=== PATIENT | male | born 1985 | race Caucasian/White ===

== ENCOUNTER 2021-03-23 09:19 | Day surgery (SDC) | payer SELFPAY ==
[2021-03-23] VITALS (9 sets, daily range): BP systolic 115–130; BP diastolic 49–89
[~2021-03-23] VITALS: Ht 182.8 cm; Wt 113.0 kg
[2021-03-23] MEDS: CLINDAMYCIN 900 MG/50 ML IVPB 50 ML IV ONE ×2 (09:19→12:30)
[2021-03-23] MEDS ORDERED: NS 100 ML (IVPB) BAG IV ONE (09:45)
[2021-03-23] MEDS ORDERED: NS IV 1000 ML 1,000 ML IV SCH (09:45)
[2021-03-23] MEDS ORDERED: fentaNYL INJ 100 MCG/2 ML AMP IVP ONE (09:45)
[2021-03-23] MEDS ORDERED: ONDANSETRON 4 MG/2 ML (SDV) Z0FRAN IVP ONE (09:45)
[2021-03-23] MEDS ORDERED: IOHEXOL 350 MG/ML 100 ML (OMNIPAQUE 350) VIAL IV ONE (09:45)
[2021-03-23] MEDS ORDERED: HOLD METFORMIN - RECEIVED CONTRAST 20 ML VIAL IV SCH (09:45)
[2021-03-23 09:47] LABS: BASOPHILS % (AUTO) 0 % (0-10); EOSINOPHILS # (AUTO) 0.2 10^3/uL (0.0-0.3); EOSINOPHILS % (AUTO) 2 % (0-10); HEMATOCRIT 48 % (40-54); HEMOGLOBIN 16.3 g/dL (13.3-17.7); LYMPHOCYTES # (AUTO) 2.2 10^3/uL (1.0-4.0); LYMPHOCYTES % (AUTO) 22 % (12-44); MEAN CORPUSCULAR HEMOGLOBIN 36 pg (25-34); MEAN CORPUSCULAR HGB CONC 34 g/dL (32-36); MEAN CORPUSCULAR VOLUME 104 fL (80-99); MEAN PLATELET VOLUME 9.6 fL (9.0-12.2); MONOCYTES # (AUTO) 0.9 10^3/uL (0.0-1.0); MONOCYTES % (AUTO) 9 % (0-12); NEUTROPHILS # (AUTO) 6.7 10^3/uL (1.8-7.8); NEUTROPHILS % (AUTO) 67 % (42-75); PLATELET COUNT 201 10^3/uL (130-400)
--- NOTE | 2021-03-23 09:48 | ED General ---
General Chief Complaint: General Problems/Pain Stated Complaint: GENITAL SWELLING/LUMP Nursing Triage Note: AMB TO ROOM WITH C/O RECTAL PAIN WITH FEELING A KNOT IN RECTAL AREA. IS PAINFUL. Source of Information: Patient Exam Limitations: No Limitations History of Present Illness Date Seen by Provider: Mar 23, 2021 Time Seen by Provider: 09:30 Initial Comments Patient is a 35-year-old male who presents to the emergency department today w ith a chief complaint of severe rectal pain onset a couple of days ago. Patient states he feels "a knot" there and it is very painful he was able to have a bowel movement yesterday, nonblack nonbloody. No fevers or chills. No nausea vomiting. No problems with urination. He has not been using anything on the area, he has no history of hemorrhoids. No recent heavy lifting or straining. He is not a diabetic, no chronic medical problems. Last food intake was yesterday, he did drink a half a can of an energy drink just prior to arrival. All other review of systems reviewed and negative except as stated. Timing/Duration: 2-3 Days Severity: Severe Associated Systoms: Denies Symptoms Allergies and Home Medications Allergies Coded Allergies: No Known Drug Allergies (Unverified , 03/23/21) Patient Home Medication List Home Medication List Reviewed: Yes Amoxicillin/Potassium Clav (Augmentin 875-125 Tablet) 1 Each Tablet, 1 EACH PO BID Prescribed by: YOBANI LOPEZ on 03/23/21 1157 Hydrocodone/Acetaminophen (Hydrocodone-Acetamin 7.5-325) 1 Each Tablet, 1 EACH PO Q4H Prescribed by: YOBANI LOPEZ on 03/23/21 1157 Review of Systems Review of Systems Constitutional: see HPI EENTM: no symptoms reported Respiratory: no symptoms reported Cardiovascular: no symptoms reported Gastrointestinal: no symptoms reported Genitourinary: other (rectal pain - severe) Musculoskeletal: no symptoms reported Skin: no symptoms reported Psychiatric/Neurological: No Symptoms Reported All Other Systems Reviewed Negative Unless Noted: Yes Past Hpgttry-Lthgfo-Pvbype Hx Patient Social History Tobacco Use?: Yes Use of E-Cig and/or Vaping Will: Current Everyday User Substance use?: No Alcohol Use?: Yes Alcohol Frequency: Rarely Physical Exam Vital Signs Vital Signs - First Documented 03/23/21 09:25 Temp 36.9 Pulse 117 Resp 18 B/P (MAP) 126/86 (99) Pulse Ox 97 O2 Delivery Room Air Capillary Refill : Less Than 3 Seconds Height, Weight, BMI Height: '" Weight: lbs. oz. kg; 33.00 BMI Method: General Appearance: No Apparent Distress, WD/WN, Anxious ((mildly)) Eyes: Bilateral Eye Normal Inspection, Bilateral Eye PERRL, Bilateral Eye EOMI HEENT: PERRL/EOMI Respiratory: Lungs Clear, Normal Breath Sounds, No Accessory Muscle Use, No Respiratory Distress Cardiovascular: Regular Rate, Rhythm Gastrointestinal: Non Tender, Soft Rectal: Tenderness (patient has what appears to hemmorhoidal swelling at the 6- 9 o'clock position exquisitely tender to palpation with induration that extend out into the left buttock about 4cm or perhaps a little more, overlying erythema which also extends up into the perineum. no crepitance - patient has great difficulty tolerating the exam due to pain; I was able to palpate just about 2cm into the rectal vault and feel quite a bit of induration - no discrete fluctuance - again the pateint was unable to tolerate MARYLOU due to severe pain; no gross blood noted.) Extremity: Normal Inspection, Normal Range of Motion, Non Tender, No Calf Tenderness Neurologic/Psychiatric: Alert, Oriented x3, No Motor/Sensory Deficits, Normal Mood/Affect Skin: Normal Color, Warm/Dry Progress/Results/Core Measures Suspected Sepsis SIRS Temperature: Pulse: 117 Respiratory Rate: 18 Laboratory Tests 03/23/21 09:41: White Blood Count 10.0 Blood Pressure 126 /86 Mean: 99 Laboratory Tests 03/23/21 09:41: Creatinine 0.80, Platelet Count 201 Results/Orders Lab Results Laboratory Tests Test 03/23/21 09:41 Range/Units White Blood Count 10.0 4.3-11.0 10^3/uL Red Blood Count 4.57 4.30-5.52 10^6/uL Hemoglobin 16.3 13.3-17.7 g/dL Hematocrit 48 40-54 % Mean Corpuscular Volume 104 H 80-99 fL Mean Corpuscular Hemoglobin 36 H 25-34 pg Mean Corpuscular Hemoglobin Concent 34 32-36 g/dL Red Cell Distribution Width 12.5 10.0-14.5 % Platelet Count 201 130-400 10^3/uL Mean Platelet Volume 9.6 9.0-12.2 fL Immature Granulocyte % (Auto) 0 % Neutrophils (%) (Auto) 67 42-75 % Lymphocytes (%) (Auto) 22 12-44 % Monocytes (%) (Auto) 9 0-12 % Eosinophils (%) (Auto) 2 0-10 % Basophils (%) (Auto) 0 0-10 % Neutrophils # (Auto) 6.7 1.8-7.8 10^3/uL Lymphocytes # (Auto) 2.2 1.0-4.0 10^3/uL Monocytes # (Auto) 0.9 0.0-1.0 10^3/uL Eosinophils # (Auto) 0.2 0.0-0.3 10^3/uL Basophils # (Auto) 0.0 0.0-0.1 10^3/uL Immature Granulocyte # (Auto) 0.0 0.0-0.1 10^3/uL Sodium Level 137 135-145 MMOL/L Potassium Level 4.1 3.6-5.0 MMOL/L Chloride Level 105 98-107 MMOL/L Carbon Dioxide Level 20 L 21-32 MMOL/L Anion Gap 12 5-14 MMOL/L Blood Urea Nitrogen 12 7-18 MG/DL Creatinine 0.80 0.60-1.30 MG/DL Estimat Glomerular Filtration Rate 117 BUN/Creatinine Ratio 15 Glucose Level 120 H 70-105 MG/DL Calcium Level 9.0 8.5-10.1 MG/DL My Orders Orders - ABDIAS SELF MD Ed Iv/Invasive Line Start (03/23/21 09:39) Cbc With Automated Diff (03/23/21 09:39) Basic Metabolic Panel (03/23/21 09:39) Ct Pelvis W (03/23/21 09:39) Ns Iv 1000 Ml (Sodium Chloride 0.9%) (03/23/21 09:45) Fentanyl Inj (Sublimaze Injection) (03/23/21 09:45) Ondansetron Injection (Zofran Injectio (03/23/21 09:45) Iohexol Injection (Omnipaque 350 Mg/Ml 1 (03/23/21 09:45) Received Contrast (Hold Metformin- Contr (03/23/21 09:45) Ns (Ivpb) (Sodium Chloride 0.9% Ivpb Bag (03/23/21 09:45) Morphine Injection (Morphine Injection (03/23/21 10:22) Morphine Injection (Morphine Injection (03/23/21 11:29) Clindamycin 900 Mg/50 Ml Ivpb (Cleocin P (03/23/21 11:45) Hydromorphone Injection (Dilaudid Inject (03/23/21 12:45) Medications Given in ED Vital Signs/I&O 03/23/21 09:25 Temp 36.9 Pulse 117 Resp 18 B/P (MAP) 126/86 (99) Pulse Ox 97 O2 Delivery Room Air Capillary Refill : Less Than 3 Seconds Blood Pressure Mean: 99 Progress Note #1: Time: 10:57 Progress Note Discussed with Dr Lopez; will be down to see. Progress Note #2: Time: 11:30 Progress Note More pain medication ordered. Dr Lopez in the room to see patient. 1137 Will take to te OR - he is going to check the schedule and see where to fit him in. Will give 900mg Clindamycin, and keep up on pain medications. Diagnostic Imaging Diagonstic Imaging: CT Comments [facility] [place] NAME: VANNA COSTA [facility] REC#: [id number] PT STATUS: REG ER : 1985 PHYSICIAN: ABDIAS SELF MD ADMIT DATE: 03/23/21/ER Draft Date of Exam:03/23/21 CT PELVIS W PROCEDURE: CT pelvis with contrast. TECHNIQUE: Oral and intravenous contrast were administered with pelvic CT performed. Auto Exposure Controls were utilized during the CT exam to meet ALARA standards for radiation dose reduction. INDICATION: Rectal pain and abscess for two to three days. COMPARISON: No prior studies are available for comparison. FINDINGS: There is a small fluid collection noted in the left perianal location measuring 2.4 x 1.6 cm, suggestive of a perianal abscess. No other fluid collections are seen. Prostate does appear to be mildly enlarged. The bladder is unremarkable. No free fluid in the pelvis is seen. Appendix is visualized and unremarkable. Bowel loops are normal in caliber. There is an enlarged left groin lymph node medial to the left femoral vein measuring 16 mm, likely reactive. Bony structures are nonacute. IMPRESSION: Findings consistent with a small left perianal abscess. Dictated on workstation # [id number] Dict: 03/23/21 1037 Trans: 03/23/21 1043 [id number] [id number] Interpreted by: SANDY SERRANO MD Electronically signed by: Departure Communication (Admissions) Time/Spoke to Admitting Phy: 11:30 discussed with John Impression Primary Impression: Autumn-rectal abscess Disposition: ADMITTED INPATIENT Condition: Stable Admissions Decision to Admit Reason: Admit from ER (General) Decision to Admit/Date: Mar 23, 2021 Time/Decision to Admit Time: 11:42 Departure-Patient Inst. Referrals: YOBANI LOPEZ MD NO,LOCAL PHYSICIAN (PCP) Primary Care Physician Scripts Hydrocodone/Acetaminophen (Hydrocodone-Acetamin 7.5-325) 1 Each Tablet 1 EACH PO Q4H, #35 TAB Prov: YOBANI LOPEZ MD 03/23/21 Amoxicillin/Potassium Clav (Augmentin 875-125 Tablet) 1 Each Tablet 1 EACH PO BID, #20 TAB Prov: YOBANI LOPEZ MD 03/23/21 Copy Copies To 1: YOBANI LOPEZ MD, KATHRYN M MD Mar 23, 2021 09:48
[2021-03-23 10:00] LABS: POTASSIUM 4.1 MMOL/L (3.6-5.0)
[2021-03-23 10:06] LABS: CREATININE SERUM 0.8 MG/DL (0.60-1.30)
[2021-03-23] MEDS ORDERED: morphine INJ 10 MG/ML 1ML (SYR OR VIAL) IVP STA ×2 (10:22→11:29)
--- NOTE | 2021-03-23 10:43 | Diagnostic Imaging Report ---
PROCEDURE: CT pelvis with contrast. TECHNIQUE: Oral and intravenous contrast were administered with pelvic CT performed. Auto Exposure Controls were utilized during the CT exam to meet ALARA standards for radiation dose reduction. INDICATION: Rectal pain and abscess for two to three days. COMPARISON: No prior studies are available for comparison. FINDINGS: There is a small fluid collection noted in the left perianal location measuring 2.4 x 1.6 cm, suggestive of a perianal abscess. No other fluid collections are seen. Prostate does appear to be mildly enlarged. The bladder is unremarkable. No free fluid in the pelvis is seen. Appendix is visualized and unremarkable. Bowel loops are normal in caliber. There is an enlarged left groin lymph node medial to the left femoral vein measuring 16 mm, likely reactive. Bony structures are nonacute. IMPRESSION: Findings consistent with a small left perianal abscess. Dictated by: Dictated on workstation # [id number]
--- NOTE | 2021-03-23 11:56 | Progress Note-Pre Operative ---
Pre-Operative Progress Note H&P Reviewed The H&P was reviewed, patient examined and no changes noted. Date Seen by Provider: Mar 23, 2021 Time Seen by Provider: 11:30 Date H&P Reviewed: Mar 23, 2021 Time H&P Reviewed: 11:30 Pre-Operative Diagnosis: perirectal abscess YOBANI CONTI MD Mar 23, 2021 11:56
[2021-03-23] MEDS ORDERED: AMOX-358 PO (11:57)
[2021-03-23] MEDS ORDERED: HYDR-3817 PO (11:57)
--- NOTE | 2021-03-23 11:58 | Discharge Inst-Surgical ---
D/C Lap Instructions-GALLITO New, Converted, or Re-Newed RX: RX on Chart Follow Up Appt in 2 weeks Activity as tolerated No driving for 24 hours No driving while on pain medications sitz bathe QID and after every BM add OTC stool softener daily Regular Diet Symptoms to Report: Fever over 101 degree F, Nausea/Vomiting Infection Signs and Symptoms to report: Increased redness, Foul odor of wound, Increased drainage Bathing instructions: May shower Operative Area Clean/Dry; Keep incision clean/dry If any problems/questions: Contact your physician or go to Emergency Room YOBANI CONTI MD Mar 23, 2021 11:58
[2021-03-23] MEDS ORDERED: ACETAMINOPHEN 325 MG TABLET PO PRN (12:00)
[2021-03-23] MEDS ORDERED: oxyCODONE/APAP 5/325MG (PERCOCET 5) TABLET PO PRN (12:00)
[2021-03-23] MEDS ORDERED: morphine INJ 10 MG/ML 1ML (SYR OR VIAL) IVP PRN ×2 (12:00)
[2021-03-23] MEDS ORDERED: ONDANSETRON 4 MG/2 ML (SDV) Z0FRAN IVP PRN ×2 (12:00→14:45)
[2021-03-23] MEDS ORDERED: HYDROmorphone 2 MG/ML VIAL (DILAUDID) IV ONE ×2 (12:45→14:45)
--- NOTE | 2021-03-23 13:38 | HISTORY AND PHYSICAL ---
DATE OF SERVICE: HISTORY OF PRESENT ILLNESS: The patient is a 35-year-old male who presented to the Emergency Department with a 3-day history of perianal, perirectal pain, which was exacerbated by having a bowel movement. He states that his last bowel movement was yesterday. He does not report any red blood per rectum as well as no purulent drainage. He states that this is his first event. A CT scan was performed, which did show a perirectal abscess. Again, he does not report any previous episodes as well as no family history of inflammatory bowel disease. The pain is significant and does interfere with his activities of daily living. PAST MEDICAL HISTORY: None. PAST SURGICAL HISTORY: Left carpal tunnel release, debridement of right groin abscess. ALLERGIES: No known drug allergies. MEDICATIONS: None. SOCIAL HISTORY: Positive smoke 1-pack-year, social alcohol. FAMILY HISTORY: Noncontributory. VITAL SIGNS: Stable, afebrile. REVIEW OF SYSTEMS: Well-nourished male, in no acute distress. He is not experiencing any shortness of breath or difficulty breathing. No chest pain, palpitations, diaphoresis. No nausea, vomiting, no diarrhea, constipation with perianal and perirectal pain for the past 3 days. No drainage. No fever, chills, no recent inadvertent weight loss. All other review of systems negative. PHYSICAL EXAMINATION: CHEST: Clear. Good breath sounds bilaterally. HEART: Regular, no murmurs. EXTREMITIES: No lower extremity edema, negative Homans sign. HEENT: No scleral icterus. NECK: No cervical lymphadenopathy. ABDOMEN: Soft, nontender, nondistended. RECTAL: There was no fistula or sinus tracts with some mild redness in the perianal region. No fluctuance palpable. ASSESSMENT AND PLAN: A 35-year-old male with perirectal abscess confirmed on CT scan, which is symptomatic and interfering with his activities of daily living and we will proceed with anal exam under anesthesia as well as incision and drainage of the perirectal abscess. Job ID: [id number] DocumentID: [id number] Dictated Date: 03/23/2021 13:01:57 Lead Generator Date: 03/23/2021 13:37:48 Dictated By: YOBANI CONTI MD
[2021-03-23] MEDS ORDERED: SEVOFLURANE (ULTANE) 15 ML INHAL SOLN ONE ×2 (13:43→14:27)
[2021-03-23] MEDS ORDERED: MIDAZOLAM 2 MG/2 ML (VERSED) VIAL ONE (13:43)
[2021-03-23] MEDS ORDERED: ONDANSETRON 4 MG/2 ML (SDV) Z0FRAN ONE (13:43)
[2021-03-23] MEDS ORDERED: proPOfol 200 MG/20 ML (DIPRIVAN) VIAL IV ONE (13:43)
[2021-03-23] MEDS ORDERED: fentaNYL INJ 100 MCG/2 ML AMP ONE (13:43)
[2021-03-23] MEDS ORDERED: LIDOCAINE PF 2% 5 ML (XYLOCAINE) VIAL ONE (13:43)
[2021-03-23] MEDS ORDERED: CLINDAMYCIN 900 MG/50 ML IVPB 50 ML IV ONE (14:06)
[2021-03-23] MEDS ORDERED: BUPIVACAINE 0.5% 30 ML (SENSORCAINE) VIAL ONE (14:07)
[2021-03-23] MEDS ORDERED: LIDOCAINE/EPI 1%-1:200,000 (XYLOCAINE) 30 ML VIAL ONE (14:07)
[2021-03-23] MEDS ORDERED: LACTATED RINGERS 1,000 ML IV PRN (14:15)
[2021-03-23] MEDS ORDERED: GLYCOPYRROLATE 0.2 MG/ML (ROBINUL) 2 ML VIAL ONE (14:27)
--- NOTE | 2021-03-23 14:39 | Progress Note-Post Operative ---
Post-Operative Progess Note Surgeon (s)/Correctional Facility Nurse (s) Surgeon YOBANI CONTI MD Correctional Facility Nurse: none Pre-Operative Diagnosis perirectal abscess Post-Operative Diagnosis left perirectal abscess(extrasphincteric) Procedure & Operative Findings Date of Procedure 03/23/21 Procedure Performed/Findings incision and drainage left perirectal abscess. Anesthesia Type general LMA Estimated Blood Loss Estimated blood loss (mL): minimal Specimens/Packing Specimens Removed abscess drainage YOBANI CONTI MD Mar 23, 2021 14:39
--- NOTE | 2021-03-23 15:03 | Anesthesia-General Post-Op ---
General Patient Condition Mental Status/LOC: Same as Preop Cardiovascular: Satisfactory Nausea/Vomiting: Absent Respiratory: Satisfactory Pain: Controlled Complications: Absent Post Op Complications Complications None Follow Up Care/Instructions Patient Instructions None needed. Anesthesia/Patient Condition Patient Condition Patient is doing well, no complaints, stable vital signs, no apparent adverse anesthesia problems. No complications reported per nursing. D/C home per [facility] [place] Criteria: Yes ALFONSO SAGASTUME CRNA Mar 23, 2021 15:03
[2021-03-23] MEDS ORDERED: oxyCODONE/APAP 5/325MG (PERCOCET 5) TABLET ONE (15:44)
--- NOTE | 2021-03-23 18:31 | OPERATIVE REPORT ---
DATE OF SERVICE: 03/23/2021 PREOPERATIVE DIAGNOSIS: Perirectal abscess. POSTOPERATIVE DIAGNOSIS: Left lateral perirectal abscess, which was extrasphincteric. PROCEDURE: Incision and drainage of perirectal abscess. Pudendal nerve block and exam under anesthesia. ANESTHESIA: General laryngeal mask airway and pudendal nerve block. ESTIMATED BLOOD LOSS: Minimal. FINDINGS: Left extrasphincteric perirectal abscess. DISPOSITION: The patient tolerated the procedure well. INDICATIONS: The patient is a 35-year-old male who presented to the Emergency Department with 3-day history of perirectal pain, which was exacerbated by having a bowel movement. He reports that his last bowel movement was yesterday. He does not report any red blood per rectum as well as no purulent drainage. He states that he has not ever had this before in the past. He states that he did have some form of an abscess secondary to an insect bite in the left inguinal region, which required an incision and drainage. A CT scan was performed, which did show a left perirectal abscess approximately 2.5 x 1.7 cm in size. Upon examination, this area was painful. DESCRIPTION OF PROCEDURE: The patient was brought to the operating room, laid supine on the table. After adequate IV pain and sedative medications and general laryngeal mask airway intubation, the patient was placed in lithotomy position and the perineum prepped and draped in standard surgical fashion. We first proceeded with a pudendal nerve block using 1% lidocaine with epinephrine, approximately 2 cm below the ischial tuberosity and witnessed the anal sphincters relaxing. A self-retaining speculum was placed and anal exam under anesthesia was performed. There were no fistulous tracts. There were no mucosal inflammatory changes. There was a palpable lesion along the left perirectal wall and appeared to be extrasphincteric. We then proceeded to anesthetize the left lateral perianal region using 1% lidocaine with epinephrine and a skin incision made using a 15 blade. Subcutaneous tissue was dissected until identifying the abscess cavity, which was then opened with purulent drainage and this was sent for culture and sensitivity. Loculations were then broken up using blunt dissection. The abscess cavity was then copiously irrigated and suctioned out. A quarter-inch Luana drain and sutured to the skin using 3-0 nylon interrupted sutures. The abscess cavity was packed with 1-inch iodoform gauze followed by 4 x 4 gauze followed by ABD pad and mesh shorts. The patient tolerated the procedure well. We will start IV normal pain medication as well as a clear liquid diet. He will be instructed to remove the packing in 24 hours and to proceed with Sitz baths 4 times a day as well as after every bowel movement. We will also have him follow up in my office in one week to remove the Luana drain. Job ID: [id number] DocumentID: [id number] Dictated Date: 03/23/2021 14:46:53 Fish Icer Date: 03/23/2021 18:30:19 Dictated By: YOBANI CONTI MD
== END 2021-03-23 17:00 | disposition home or self-care (01) ==
LOC: ER 09:23 → SDC 13:39
PROVIDERS: ATTEND Surgery
DX: K91.1 Postgastric surgery syndromes (principal); F17.210 Nicotine dependence, cigarettes, uncomplicated; Z79.891 Long term (current) use of opiate analgesic; Z79.899 Other long term (current) drug therapy
CPT/HCPCS: 36415; 72193; 80048; 85025; 87070; 87075; 87076; 87077; 87101; 87185; 87186; 87205

== ENCOUNTER → 2021-08-13 | Day surgery (SDC) | payer BC ==
[2021-08-13] VITALS (7 sets, daily range): BP systolic 107–124; BP diastolic 63–86
[~2021-08-13] VITALS: Ht 182.8 cm; Wt 113.0 kg
[~2021-08-13] MED LIST: ACHD5005 PO; AMOX-358 PO; HYDR-3817 PO; HYDROcodone/APAP 5 MG/325 MG (LORTAB) TAB ONE; HYDROcodone/APAP 5 MG/325 MG (LORTAB) TAB PO PRN; HYDROmorphone 2 MG/ML VIAL (DILAUDID) IV ONE; HYDROmorphone 2 MG/ML VIAL (DILAUDID) ONE; KETOROLAC 30 MG/ML VIAL ONE; LACTATED RINGERS 1,000 ML IV PRN; LIDOCAINE/EPI 2% 1:100,00 (XYLOCAINE) 20 ML VIAL ONE; MEPERIDINE (DEMEROL) INJ 50 MG/ML ONE; MIDAZOLAM 2 MG/2 ML (VERSED) VIAL ONE; ONDANSETRON 4 MG/2 ML (SDV) Z0FRAN IVP ONE; ONDANSETRON 4 MG/2 ML (SDV) Z0FRAN ONE; PROMETHAZINE INJ 25 MG/ML (PHENERGAN) AMP ONE; SEVOFLURANE (ULTANE) 15 ML INHAL SOLN ONE; SULF1TAB38 PO; cefTRIAXone 1 GM PRE-MIX 50 ML IV SCH; fentaNYL INJ 100 MCG/2 ML AMP ONE; metroNIDAZOLE 500MG/100ML IVPB 100 ML IV ONE; morphine INJ 10 MG/ML 1ML (SYR OR VIAL) IVP STA; proPOfol 200 MG/20 ML (DIPRIVAN) VIAL IV ONE
--- NOTE | 2021-08-13 15:10 | ED Integumentary General ---
General Chief Complaint: Skin/Wound Problems Stated Complaint: RECTAL ABCESS Source: patient, family () Exam Limitations: no limitations History of Present Illness Date Seen by Provider: Aug 13, 2021 Time Seen by Provider: 15:00 Initial Comments Patient is a 35-year-old male who presents to the emergency room today with a chief complaint of rectal abscess. Patient was seen a couple of months ago here in the emergency room, had incision and drainage by one of the surgeons. He states he was sent home on antibiotics. He felt at that time the abscess had not been drained "enough". He states since that time it seems to have "come and gone". Over the last 4 days he has had increasing rectal pain, inability to have a bowel movement. No fevers or chills. He was vomiting at work today secondary to the pain. He is not a diabetic. All other review of systems reviewed and negative except as stated. Timing/Duration: other (3-4 days) Location: genitalia (rectal) Associated Symptoms: other (n/v) Allergies and Home Medications Allergies Coded Allergies: No Known Drug Allergies (Unverified , 08/13/21) Patient Home Medication List Home Medication List Reviewed: Yes Hydrocodone/Acetaminophen (Hydrocodone-Acetamin 5-325 mg) 5 Mg-325 Mg Tablet, 1 TAB PO Q6H PRN for PAIN-MODERATE (5-7) Prescribed by: BEVERLEY RICHARDSON on 08/13/21 183 Sulfamethoxazole/Trimethoprim (Bactrim Ds Tablet) 1 Each Tablet, 1 EACH PO BID Prescribed by: BEVERLEY RICHARDSON on 08/13/21 183 Discontinued Medications Amoxicillin/Potassium Clav (Augmentin 875-125 Tablet) 1 Each Tablet, 1 EACH PO BID Prescribed by: YOBANI CONTI on 03/23/21 1157 Hydrocodone/Acetaminophen (Hydrocodone-Acetamin 7.5-325) 1 Each Tablet, 1 EACH PO Q4H Prescribed by: YOBANI CONTI on 03/23/21 1157 Review of Systems Review of Systems Constitutional: see HPI EENTM: no symptoms reported Respiratory: no symptoms reported Cardiovascular: no symptoms reported Gastrointestinal: nausea, vomiting Genitourinary: pain (rectal abscess) Musculoskeletal: no symptoms reported Skin: no symptoms reported Psychiatric/Neurological: No Symptoms Reported Past Omhjixp-Dgseyn-Ikusxl Hx Past Medical History Currently Using CPAP: No Currently Using BIPAP: No Physical Exam Vital Signs Vital Signs - First Documented 08/13/21 15:00 Temp 37.8 Pulse 100 Resp 18 B/P (MAP) 126/86 (99) Pulse Ox 96 O2 Delivery Room Air Capillary Refill : General Appearance: WD/WN, mild distress HEENT: PERRL/EOMI Cardiovascular: regular rate, rhythm Respiratory: lungs clear, normal breath sounds, no respiratory distress, no accessory muscle use Extremities: normal range of motion, normal inspection Neurologic/Psychiatric: alert, normal mood/affect, oriented x 3 Skin: normal color, warm/dry, other (Large abscess left medial buttock adjacent to the rectum. He has erythema extending up to the perineum. No induration at the perineum. There is an area of about 2 cm of central fluctuance. There seems to be scar at this area. Exquisitely tender. Red and hot) Skin Problem Character: abscess Progress/Results/Core Measures Results/Orders Lab Results Laboratory Tests Test 08/13/21 15:15 Range/Units White Blood Count 11.7 H 4.3-11.0 10^3/uL Red Blood Count 4.46 4.30-5.52 10^6/uL Hemoglobin 15.5 13.3-17.7 g/dL Hematocrit 45 40-54 % Mean Corpuscular Volume 102 H 80-99 fL Mean Corpuscular Hemoglobin 35 H 25-34 pg Mean Corpuscular Hemoglobin Concent 34 32-36 g/dL Red Cell Distribution Width 12.4 10.0-14.5 % Platelet Count 221 130-400 10^3/uL Mean Platelet Volume 10.0 9.0-12.2 fL Immature Granulocyte % (Auto) 0 % Neutrophils (%) (Auto) 77 H 42-75 % Lymphocytes (%) (Auto) 16 12-44 % Monocytes (%) (Auto) 6 0-12 % Eosinophils (%) (Auto) 1 0-10 % Basophils (%) (Auto) 0 0-10 % Neutrophils # (Auto) 9.0 H 1.8-7.8 10^3/uL Lymphocytes # (Auto) 1.9 1.0-4.0 10^3/uL Monocytes # (Auto) 0.7 0.0-1.0 10^3/uL Eosinophils # (Auto) 0.1 0.0-0.3 10^3/uL Basophils # (Auto) 0.0 0.0-0.1 10^3/uL Immature Granulocyte # (Auto) 0.0 0.0-0.1 10^3/uL Sodium Level 139 135-145 MMOL/L Potassium Level 4.0 3.6-5.0 MMOL/L Chloride Level 106 98-107 MMOL/L Carbon Dioxide Level 19 L 21-32 MMOL/L Anion Gap 14 5-14 MMOL/L Blood Urea Nitrogen 8 7-18 MG/DL Creatinine 0.83 0.60-1.30 MG/DL Estimat Glomerular Filtration Rate 116 BUN/Creatinine Ratio 10 Glucose Level 97 70-105 MG/DL Calcium Level 9.5 8.5-10.1 MG/DL My Orders Orders - ABDIAS SELF MD Ed Iv/Invasive Line Start (08/13/21 15:06) Cbc With Automated Diff (08/13/21 15:06) Basic Metabolic Panel (08/13/21 15:06) Ondansetron Injection (Zofran Injectio (08/13/21 15:15) Morphine Injection (Morphine Injection (08/13/21 15:06) Hydromorphone Injection (Dilaudid Inject (08/13/21 15:45) Lidocaine/Epi 2% 1:100,000 (Xylocaine/Ep (08/13/21 16:22) Medications Given in ED Vital Signs/I&O 08/13/21 15:00 Temp 37.8 Pulse 100 Resp 18 B/P (MAP) 126/86 (99) Pulse Ox 96 O2 Delivery Room Air Progress Progress Note : Time: 15:14 Progress Note Discussed with Dr Sheriff - will be in to see in a few moments Departure Impression Primary Impression: Autumn-rectal abscess Disposition: ADMITTED INPATIENT Condition: Stable Admissions Decision to Admit Reason: Admit from ER (General) Decision to Admit/Date: Aug 13, 2021 Time/Decision to Admit Time: 16:00 Departure-Patient Inst. Referrals: AURA SHERIFF DO NO,LOCAL PHYSICIAN (PCP) Primary Care Physician Scripts Hydrocodone/Acetaminophen (Hydrocodone-Acetamin 5-325 mg) 5 Mg-325 Mg Tablet 1 TAB PO Q6H PRN for PAIN-MODERATE (5-7), #30 TAB 1-2 every 6 hours as needed for pain Prov: AURA SHERIFF DO 08/13/21 Sulfamethoxazole/Trimethoprim (Bactrim Ds Tablet) 1 Each Tablet 1 EACH PO BID for 10 Days, #20 TAB Prov: AURA SHERIFF DO 08/13/21 Copy Copies To 1: AURA SHERIFF KATHRYN M MD Aug 13, 2021 15:10
[2021-08-13 15:27] LABS: BASOPHILS % (AUTO) 0 % (0-10); EOSINOPHILS # (AUTO) 0.1 10^3/uL (0.0-0.3); EOSINOPHILS % (AUTO) 1 % (0-10); HEMATOCRIT 45 % (40-54); HEMOGLOBIN 15.5 g/dL (13.3-17.7); LYMPHOCYTES # (AUTO) 1.9 10^3/uL (1.0-4.0); LYMPHOCYTES % (AUTO) 16 % (12-44); MEAN CORPUSCULAR HEMOGLOBIN 35 pg (25-34); MEAN CORPUSCULAR HGB CONC 34 g/dL (32-36); MEAN CORPUSCULAR VOLUME 102 fL (80-99); MONOCYTES # (AUTO) 0.7 10^3/uL (0.0-1.0); MONOCYTES % (AUTO) 6 % (0-12); NEUTROPHILS % (AUTO) 77 % (42-75); PLATELET COUNT 221 10^3/uL (130-400); WHITE BLOOD COUNT 11.7 10^3/uL (4.3-11.0)
[2021-08-13 15:39] LABS: CALCIUM 9.5 MG/DL (8.5-10.1)
[2021-08-13 15:44] LABS: CREATININE SERUM 0.83 MG/DL (0.60-1.30)
--- NOTE | 2021-08-13 16:12 | Consultation - Surgery ---
History of Present Illness History of Present Illness Patient Consulted On(william/time) 08/13/21 16:07 Date Seen by Provider: Aug 13, 2021 Time Seen by Provider: 16:07 History of Present Illness Seen and evaluated in ED. 35 year old male with history of left perirectal abscess in March. Had it drained at that time. Intermittently felt that it was coming back but usually would go away about a day or so later. Last 3 days or so the area has increased in pain. Severe pain around rectum. Has been having liquid stools. Nothing making better. Touching the area or sitting makes worse. Has had nausea/vomiting due to pain. No other complaints at this time. Denies fever sweats chills shortness of breath or chest pain. Allergies and Home Medications Allergies Coded Allergies: No Known Drug Allergies (Unverified , 08/13/21) Patient Home Medication List Home Medication List Reviewed: Yes Amoxicillin/Potassium Clav (Augmentin 875-125 Tablet) 1 Each Tablet, 1 EACH PO BID Prescribed by: YOBANI CONTI on 03/23/21 1157 Hydrocodone/Acetaminophen (Hydrocodone-Acetamin 7.5-325) 1 Each Tablet, 1 EACH PO Q4H Prescribed by: YOBANI CONTI on 03/23/21 1157 Hydrocodone/Acetaminophen (Hydrocodone-Acetamin 5-325 mg) 5 Mg-325 Mg Tablet, 1 TAB PO Q6H PRN for PAIN-MODERATE (5-7) Prescribed by: ABDIAS SELF on 08/13/21 1604 Sulfamethoxazole/Trimethoprim (Bactrim Ds Tablet) 1 Each Tablet, 1 EACH PO BID Prescribed by: ABDIAS SELF on 08/13/21 1689 Past Rkkuxcr-Jlhtho-Ietbac Hx Patient Social History Smoking Status: Current Everyday Smoker Alcohol Use?: Yes Have you traveled recently?: No Surgeries History of Surgeries: Yes (i and d rectal abscess, carpal tunnel, orthopedic left arm, thigh abscess) Respiratory History of Respiratory Disorde: No Cardiovascular History of Cardiac Disorders: No Neurological History of Neurological Disord: No Genitourinary History of Genitourinary Disor: No Gastrointestinal History of Gastrointestinal Di: No Musculoskeletal History of Musculoskeletal Dis: No Endocrine History of Endocrine Disorders: No HEENT History of HEENT Disorders: No Cancer History of Cancer: No Psychosocial History of Psychiatric Problem: No Integumentary History of Skin or Integumenta: No Family Medical History Significant Family History: No Pertinent Family Hx Review of Systems-General Constitutional: No diaphoresis, No weakness EENTM: No blurred vision, No double vision Respiratory: No cough, No dyspnea on exertion Cardiovascular: No chest pain, No palpitations Gastrointestinal: nausea, vomiting, other (rectal pain) Genitourinary: No decreased output, No discharge Musculoskeletal: No back pain, No joint pain Skin: change in color; No change in hair/nails Psychiatric/Neurological: Denies Anxiety, Denies Depressed, Denies Emotional Problems All Other Systems Reviewed Negative Unless Noted: Yes (Negative excepted noted.) Physical Exam-General Problems Physical Exam Vital Signs Vital Signs - First Documented 08/13/21 15:00 Temp 37.8 Pulse 100 Resp 18 B/P (MAP) 126/86 (99) Pulse Ox 96 O2 Delivery Room Air Capillary Refill : Less Than 3 Seconds General Appearance: WD/WN, no apparent distress HEENT: PERRL/EOMI, normal ENT inspection Neck: non-tender, supple Respiratory: chest non-tender, no respiratory distress, no accessory muscle use Cardiovascular: regular rate, rhythm, no JVD Gastrointestinal: non tender, soft Rectal: tenderness (significantly tender, ), other (surrounding erythema and area of fluctuance) Back: no CVA tenderness, no vertebral tenderness Extremities: non-tender, normal inspection Neurologic/Psychiatric: alert, normal mood/affect, oriented x 3 Skin: other (erythema and warmth around anus, more left sided) Lymphatic: no adenopathy Data Review Labs Laboratory Tests 08/13/21 15:15: White Blood Count 11.7H, Red Blood Count 4.46, Hemoglobin 15.5, Hematocrit 45, Mean Corpuscular Volume 102H, Mean Corpuscular Hemoglobin 35H, Mean Corpuscular Hemoglobin Concent 34, Red Cell Distribution Width 12.4, Platelet Count 221, Mean Platelet Volume 10.0, Immature Granulocyte % (Auto) 0, Neutrophils (%) (Auto) 77H, Lymphocytes (%) (Auto) 16, Monocytes (%) (Auto) 6, Eosinophils (%) (Auto) 1, Basophils (%) (Auto) 0, Neutrophils # (Auto) 9.0H, Lymphocytes # (Auto) 1.9, Monocytes # (Auto) 0.7, Eosinophils # (Auto) 0.1, Basophils # (Auto) 0.0, Immature Granulocyte # (Auto) 0.0, Sodium Level 139, Potassium Level 4.0, Chloride Level 106, Carbon Dioxide Level 19L, Anion Gap 14, Blood Urea Nitrogen 8, Creatinine 0.83, Estimat Glomerular Filtration Rate 116, BUN/Creatinine Ratio 10, Glucose Level 97, Calcium Level 9.5 Assessment/Plan Assessment/Plan Assessment/Plan perirectal abscess perirectal pain patient discussed risks and benefits of incision and drainage of perirectal abscess all other indicated procedures he and family understand and wish to proceed. to or. patient not wanting to stay postoperatively so will dc home on pain medication/bactrim Needs packing daily which he understands, at bedside and understands how to due to last time had this done. AURA SHERIFF DO Aug 13, 2021 16:12
--- NOTE | 2021-08-13 17:16 | Discharge Inst-Simple/Standard ---
Discharge Inst-Standard Discharge Medications New, Converted or Re-Newed RX: Transmitted to Pharmacy Patient Instructions/Follow Up Plan of Care/Instructions/FU: 1 week [place] Daily irrigate and pack wound. Activity as Tolerated: Yes Discharge Diet: Regular Diet Other Inst to Patient Follow up Appt: Make appointment for 1 week. Instructions: Activity as tolerates. May shower in 24 hours, no tub bath or soaking. Use incentive spirometer at home as directed. No Smoking Skin/Wound Care: Daily and as needed wound care. Irrigate wound with saline or sterile water and pack with iodoform gauze. Symptoms to Report: Appetite Changes, Extremity Discoloration, Numbness/Tingling, Swelling Increased, Bleeding Excessive, Eyesight Changes, Pain Increased, Urine Color Change, Constipation(Persistent), Fever over 101 degree F, Pain/Pressure in chest, Urinating Difficulty, Cough Up/Vomit Blood, Heart Beat Irreg/Pounding, Pain/Pressure in jaw, Vaginal Bleeding Increase, Cramps in feet or legs, Lightheadedness, Pain/Pressure in shoulder, Diarrhea(Persistent), Memory Changes Suddenly, Questions/Concerns, Weight gain consecutive days, Dizziness/Fainting, Nausea/Vomiting, Shortness of Breath, Weight gain over 2 pounds If questions or concerns contact your physician Or seek help at emergency department. AURA SHERIFF DO Aug 13, 2021 17:16
--- NOTE | 2021-08-13 17:17 | Progress Note-Post Operative ---
Post-Operative Progess Note Surgeon (s)/Band Shover (s) Surgeon AURA SHERIFF DO Band Shover: na Pre-Operative Diagnosis perirectal abscess Post-Operative Diagnosis same Procedure & Operative Findings Date of Procedure 08/13/21 Procedure Performed/Findings incision and drainage of perirectal abscess Anesthesia Type general Estimated Blood Loss Estimated blood loss (mL): minimal Specimens/Packing Specimens Removed culture wound AURA SHERIFF DO Aug 13, 2021 17:17
[2021-08-13] MEDS: HYDROmorphone 2 MG/ML VIAL (DILAUDID) ONE (17:35)
--- NOTE | 2021-08-13 18:58 | Anesthesia-General Post-Op ---
General Patient Condition Mental Status/LOC: Same as Preop Cardiovascular: Satisfactory Nausea/Vomiting: Absent Respiratory: Satisfactory Pain: Controlled Complications: Absent Post Op Complications Complications None Follow Up Care/Instructions Patient Instructions None needed. Anesthesia/Patient Condition Patient Condition Patient is doing well, no complaints, stable vital signs, no apparent adverse anesthesia problems. No complications reported per nursing. D/C [place] [facility] [place]: Yes ALFONSO SAGASTUME CRNA Aug 13, 2021 18:58
--- NOTE | 2021-08-13 21:23 | OPERATIVE REPORT ---
DATE OF SERVICE: 08/13/2021 PREOPERATIVE DIAGNOSIS: Perirectal abscess. POSTOPERATIVE DIAGNOSIS: Perirectal abscess. PROCEDURE: Incision and drainage of perirectal abscess. SURGEON: Aura Carrillo DO ANESTHESIA: General. ESTIMATED BLOOD LOSS: Minimal. COMPLICATIONS: None. SPECIMENS: Culture of perirectal abscess. INDICATIONS: The patient is a 35-year-old male who had previous incision and drainage in March for perirectal abscess. This has recurred. He had been having issues on and off, but would improve on its own. He said the last few days, he has been worsening and having severe pain. He understands risks and benefits of procedure and wishes to proceed. Consent was signed in the chart. DESCRIPTION OF PROCEDURE: The patient was taken to the operating suite, was prepped and draped in sterile fashion in lithotomy position. Timeout was performed. Local anesthetic was infiltrated over the area of fluctuance more on the left side. A 15 blade scalpel was used to make a skin incision approximately 3.5 cm in length. Purulent material erupted, culture was obtained. Antibiotics were then started. Finger was used to break up any loculations and continued to retract at the end of the perirectal region. Wound was then irrigated with copious amounts of irrigation. Hemostasis was achieved. The wound was then packed with iodoform gauze and sterile bandages were applied. The patient tolerated the procedure well without any complications, was taken to recovery room in stable condition. Job ID: [id number] DocumentID: [id number] Dictated Date: 08/13/2021 17:19:19 Business Continuity Consultant Date: 08/13/2021 21:22:45 Dictated By: AURA CARRILLO DO
== END ==
LOC: EDUNIT# 14:55 → ER 14:57 → SDC 16:26
PROVIDERS: ATTEND Surgery
DX: K61.1 Rectal abscess (principal)
CPT/HCPCS: 36415; 80048; 85025; 87070; 87075; 87076; 87077; 87185; 87186; 87205; 96374; 96375